=== PATIENT | male | born 1940 | race Caucasian/White ===

== ENCOUNTER → 2016-09-22 | Outpatient (CLI) | payer MEDICARE, OTHER ==
[~2016-09-22] MED LIST: ALLO300T74 PO; ASPI-725 PO; CEPH-583 PO; CHOL100055 PO; CHOL100092 PO; CLIN300C86 PO; FURO40TA70 PO; GABA-338 PO; HYDR-347 PO; LATA2.5D2 LEFT EYE; LEVO500T63 PO; LOSA100T7 PO; METO-68 PO; NITR0.4T39 SL; OMEG1CAP95 PO; OMEP40CA52 PO; OXYC1TAB11 PO; POLY17PO6 PO; POTA10TA93 PO; ROSU10TA13 PO; TAMS-1 PO; TEST60GE TD; [UNRECOGNIZED DRUG - CODE] OP
--- NOTE | 2016-09-22 19:35 | WOUNDCONF ---
DATE OF CONSULTATION September 22, 2016 CHIEF COMPLAINT Infectious Disease consultation was requested by Dr. Soriano for osteomyelitis of the left great toe. HISTORY OF PRESENT ILLNESS Mr. Lombardi is a 76-year-old man who states that about three months ago after he got out of the shower he had a fairly large chunk of skin that came off on the bottom of his left great toe. He states that he did not think that there was a "crater" underneath that and initially this was not painful. Eventually he did develop some increased pain there. He then went to see his primary care provider who gave him an antibiotic. He states this was about two and a half months ago. He cannot recall the name of this antibiotic. He did not think there was much improvement. In fact, he noticed increased drainage from this area and some of the drainage looked bloody and some was purulent. He returned to his primary care provider on September 11 and he was given Keflex on that day and was referred to the wound clinic. He was seen by Dr. Soriano on September 20. He underwent some debridement and a wound culture was obtained which showed few gram-positive cocci in pairs, few gram positive rods, a few gram-negative rods on the Gram stain. The culture is growing moderate growth of the gram- negative alejandra which has not yet been identified, moderate growth of Staph aureus and Diphtheroid bacillus. The sensitivities on the Staph aureus are not yet available. He had arterial Dopplers of the lower extremities done on September 21, which was yesterday. This showed occlusion of the left proximal superficial femoral artery and mild stenosis in the right popliteal with decreased flow in the calf arteries. He had an MRI of the left foot on September 20 which showed changes concerning for osteomyelitis of the distal phalanx on about the distal one-half of the proximal phalanx of the great toe on the left foot. He has been seen today by myself as well as Dr. Jurado. Dr. Jurado discussed taking him for a bone biopsy next , September 30, and we all discussed stopping his antibiotics to increase our culture yield. PAST MEDICAL HISTORY Hypertension. Hyperlipidemia. Gastroesophageal reflux disease. Peripheral neuropathy idiopathic. Erectile dysfunction. Gout. History of colon perforation. PAST SURGICAL HISTORY Coronary artery bypass graft surgery - April 2006. Tonsillectomy - 1943. Nasal septum repair - 1984. Perforated colon repair - 1991. SOCIAL HISTORY He is . He is retired . He lives in [place] with his . Occasional alcohol use. He reports occasional tobacco use in the form of a pipe. He states that he used to smoke cigarettes but quit 50 years ago. ALLERGIES Ambien. FAMILY HISTORY His father at age 43 of a myocardial infarction. Mother at age 73 of cancer. CURRENT MEDICATIONS Keflex 500 mg p.o. t.i.d. Allopurinol. Aspirin. Axiron. Crestor. Fish oil Flomax. Gabapentin. Lasix. Losartan. Metoprolol. Nitroglycerin. [place] p.r.n. foot pain. Omeprazole. Potassium supplement. Xalatan eye drops. REVIEW OF SYSTEMS He denies any recent fevers, chills or sweats. He denies any recent nausea, vomiting, diarrhea. Denies any chest pain, shortness of breath, abdominal pain. Denies any urinary complaints. He does have dry skin and has a lot of itching in his lower extremities. He has pain involving the left great toe which seems to be worse in the afternoons and when he has been on his foot for quite a while. He denies any significant problems with peripheral edema. The rest of the review of systems is negative other than that mentioned above. PHYSICAL EXAMINATION VITAL SIGNS: Temperature 96.5, blood pressure 155/82, pulse 52, respirations 12. Weight is 185 pounds. GENERAL: He appears comfortable and is in no acute distress. HEENT: Pupils equal, round, reactive to light. Extraocular movements intact. Oropharynx is clear. Dentition is good. NECK: Supple. HEART: Regular rate and rhythm. No murmurs noted. LUNGS: Clear to auscultation bilaterally anteriorly. ABDOMEN: Soft, nontender. He has normal bowel sounds. No guarding or rebound. EXTREMITIES: No joint effusions are noted. No significant peripheral edema is noted. He does have palpable pedal pulses involving the left lower extremity although they appear slightly diminished. His left great toe appears to be slightly edematous but this has a chronic appearance to it. He has an ulcer on the plantar aspect of the left great toe with some visible tendon in the middle of this wound. There is some granulation tissue in the wound and some slight bloody drainage but no purulence, no fluctuance and no significant cellulitis. NEUROLOGIC: Exam is grossly nonfocal. He is alert and oriented x 3. Speech is normal. PSYCHIATRIC: Mood and affect are appropriate. SKIN: No rashes although he does have several scabbed lesions on the left calf and left lower extremity consistent with excoriations. He also has a patch of raised dry skin near the lateral left ankle which has the appearance of eczema. LABORATORY Laboratory from September 20 shows a white count of 8.4, hemoglobin 13.4, platelets 269,000. Creatinine is 1.3. Liver function tests are normal. C-reactive protein 5.1. IMPRESSION 1. Chronic ulcer left great toe for three months with MRI showing changes concerning for osteomyelitis of the left great toe and proximal phalanx, superficial wound culture from September 20 with Staph aureus, a gram-negative alejandra and Diphtheroid bacillus. 2. Peripheral arterial disease with occlusion of the left proximal superficial femoral artery seen on Dopplers September 21, 2016. 3. Coronary artery disease status post coronary artery bypass graft surgery. 4. Hypertension. 5. Hyperlipidemia. 6. Idiopathic peripheral neuropathy. 7. Gastroesophageal reflux disease. 8. Gout. RECOMMENDATIONS This case was discussed with Dr. Jurado and Dr. Soriano. Dr. Jurado is planning to obtain a bone biopsy of the left great toe on September 30 and send it for cultures. Will have him discontinue his Keflex for now to try to increase the yield of these cultures. Also, the patient will be referred to Cardiology for possible intervention for his peripheral arterial disease. I discussed with the patient and his that I would recommend treating him with six weeks of IV antibiotics and I discussed PICC line placement with him. At this point, however, I need to wait for the bone culture to help guide antibiotic therapy. I will plan to see him back in followup on October 06 and at that time hopefully we will be able to initiate IV antibiotics. Thank you for allowing me to participate in the care of this patient. SUSHILA
--- NOTE | 2016-09-24 11:23 | WOUNDCONF ---
DATE OF CONSULTATION 09/22/2016 CHIEF COMPLAINT Left great toe ulcer. HISTORY OF PRESENT ILLNESS Mr. Lombardi is a kind 76-year-old gentleman who has been see in wound clinic for a left great toe ulceration which has been present since May of 2016. It started as a blister. It came off in the shower. He has been on a round of antibiotics and the ulcer improved but did not fully heal. He then started to develop increased redness in the toe and the foot which has since resolved on Keflex. It is thought that the ulcer is related to polyneuropathy. He has no history of known diabetes but does admit to decreased sensation in his feet. In the wound clinic earlier this week he was started on Hydrofera blue dressings with sharp debridement and using a postop shoe. SUSHILA
--- NOTE | 2016-09-24 11:45 | WOUNDCONF ---
DATE OF CONSULTATION 09/22/2016 REASON FOR CONSULT Left great toe ulceration. HISTORY OF PRESENT ILLNESS Mr. Lombardi is a kind 76-year-old gentleman who first noticed the ulceration to his left great toe two months ago. It has been treated as outpatient with antibiotics. Unfortunately, it is getting worse and he was seen at the wound clinic earlier this week. He was started on Hydrofera blue dressing and sharp debridement was performed. I was consulted for a possible bone biopsy. He states that ulcer started, again, about two months ago. He first noticed it in the shower. He thought it was a blister and the skin came off around it in the shower. 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 PAST MEDICAL HISTORY 1. Hereditary idiopathic neuropathy. 2. Seasonal allergies. PAST SURGICAL HISTORY Appendectomy. MEDICATIONS Are reviewed by me and available in the wound clinic chart. ALLERGIES Ambien. FAMILY HISTORY He is . He does not smoke. He does not drink alcohol. REVIEW OF SYSTEMS Positive for pain and glaucoma and allergies. Negative for chills, fever, chest pain, shortness of breath, vomiting, other skin lesions or bleeding disorders. EXAM GENERAL: He is alert and oriented, in no acute distress. He is well nourished and well developed. He is here with his . VITALS: Blood pressure is 155/82. Respirations 18. Pulse 52. Temperature is 96.5. EXTREMITIES: Exam of his left lower extremity shows he has a plantar ulceration over the great toe with tendon and/or deep fascia deep within the wound. The wound has recently been debrided and so does not currently have any necrotic tissue. There periwound area is clear. The wound measures approximately 0.9 x 0.9 x 0.3 cm. Sensation is intact to light touch throughout the foot but decreased. He has Dopplerable dorsalis pedis and posterior tibial pulses. ASSESSMENT Left great toe ulceration related to polyneuropathy. PLAN To fully treat his toe ulcer, Dr. Soriano and Dr. Timmons have requested a bone biopsy to help target the antibiotic treatment. I agree with this plan. I recommend we do this in the operating room. He is currently on antibiotics. Will have him stop his antibiotics today and then plan on the bone biopsy in one week's time. After that biopsy, then he can resume antibiotics per Dr. Timmons. I reviewed with him the risks and benefits and expected postoperative course with a bone biopsy. He agreed with this plan. We will schedule as an outpatient next . SUSHILA
== END ==
LOC: NWCC 09:55
PROVIDERS: ATTEND Internal Medicine
DX: L97.522 Non-pressure chronic ulcer of other part of left foot with fat layer exposed (principal); G60.9 Hereditary and idiopathic neuropathy, unspecified; I73.9 Peripheral vascular disease, unspecified; I25.10 Atherosclerotic heart disease of native coronary artery without angina pectoris; I10 Essential (primary) hypertension; E78.5 Hyperlipidemia, unspecified; K21.9 Gastro-esophageal reflux disease without esophagitis; M10.9 Gout, unspecified

== ENCOUNTER → 2016-10-06 | Outpatient (CLI) | payer MEDICARE, OTHER ==
[~2016-10-06] MED LIST changes: -CEPH-583 PO; -CHOL100092 PO; -CLIN300C86 PO; +SALINE FLUSH 10ml SYRINGE IVF ONE; -[UNRECOGNIZED DRUG - CODE] OP
--- NOTE | 2016-10-06 13:29 | WOUNDPNF ---
DATE October 06, 2016 CHIEF COMPLAINT Followup for osteomyelitis of the left great toe. HISTORY OF PRESENT ILLNESS Mr. Lombardi is a 76-year-old man who reports that about three months ago after he got out of the shower, he had a fairly large chunk of skin that just came off on the bottom of his left great toe. This went on to develop a wound. He was treated by his primary care physician with an antibiotic but did not have much improvement. On September 11 he was given Keflex and referred to the wound clinic. He had a superficial wound culture obtained September 20 that grew methicillin susceptible staph aureus, Stenotrophomonas maltophilia and bacillus species. He had an MRI of the left foot September 20 which showed changes concerning for osteomyelitis of the distal phalanx on the distal one half of the proximal phalanx of the great toe on the left foot. He also had arterial Dopplers which showed occlusion of the left proximal superficial femoral artery and mild stenosis in the right popliteal with decreased flow in the calf arteries. He was taken to the operating room by Dr. Jurado for a bone biopsy on September 30. This culture grew methicillin-susceptible staph aureus which was sensitive to clindamycin, doxycycline, erythromycin, levofloxacin, oxacillin, tetracycline, Bactrim, vancomycin and it also grew Enterococcus faecalis sensitive to ampicillin, doxycycline, linezolid and vancomycin. He comes back today for followup and to discuss IV antibiotics. PAST MEDICAL HISTORY, PAST SURGICAL HISTORY, SOCIAL HISTORY, ALLERGIES, FAMILY HISTORY Were reviewed. ALLERGIES Listed only to AMBIEN. REVIEW OF SYSTEMS He denies any fevers, chills or sweats. He denies any nausea, vomiting or diarrhea. He has a little bit of pain involving the left great toe. PHYSICAL EXAMINATION VITALS: Temperature is 97.1. Blood pressure 151/85. Pulse 51. Respirations 18. Weight is 185 pounds. GENERAL: In general he appears comfortable and in no acute distress. HEENT: Pupils equal, round, reactive to light. Extraocular movements intact. Oropharynx is clear. NECK: Supple. HEART: Regular rate and rhythm. No murmurs noted. LUNGS: Clear to auscultation bilaterally anteriorly. ABDOMEN: Soft and nontender. He has bowel sounds present. EXTREMITIES: No significant edema. No joint effusions are noted. His left great toe has a wound on the plantar aspect which appears mostly clean. There is some tendon exposed. No significant purulence and no significant surrounding cellulitis is noted. NEURO: Exam is grossly nonfocal. He is alert and oriented x3. Speech is normal. PSYCHIATRIC: His mood and affect are appropriate. LABORATORY Laboratory was reviewed from September 30. His creatinine is 1.2. IMPRESSION 1. Chronic ulcer left great toe with MRI showing changes concerning for osteomyelitis of the left great toe and proximal phalanx, status post bone biopsy September 30, 2016 with culture growing oxacillin susceptible staph aureus and Enterococcus faecalis sensitive to ampicillin. History of superficial wound culture with methicillin-susceptible staph aureus, Stenotrophomonas and Diphtheroid bacillus. 2. Peripheral arterial disease with occlusion of the left proximal superficial femoral artery seen on Dopplers September 21, 2016. 3. Coronary artery disease status post coronary artery bypass graft surgery. 4. Hypertension. 5. Hyperlipidemia. 6. Idiopathic peripheral neuropathy. 7. Gastroesophageal reflux disease. 8. Gout. RECOMMENDATIONS I discussed with the patient that I would recommend IV antibiotics for six weeks. Ideally I could give him a penicillin-related to antibiotics, however the frequency of doses required would be quite difficult to do as an outpatient. I recommend daptomycin 6 mg/kg IV daily for six weeks. The patient does have an upcoming trip to [place] October 19 through October 23 that he really needs to go to and so is asking how we can accommodate how we can accommodate his schedule with these antibiotics. I discussed with him that we could start him on IV antibiotics today and just have him take an oral antibiotic for those days when he is going to be gone or another option would be just to put him on oral antibiotics and wait until he returns to start his six-week course of IV antibiotics. He is wanting to go ahead and start the IV antibiotics today. We will try to get a PICC line in today and get his first dose of daptomycin today. He will then miss his daptomycin doses on October 19 through October 23 and return to the daptomycin on October 24. I gave him a prescription for Keflex 500 mg p.o. q.i.d. to be taken October 19 through October 23. I also recommended that he hold his Crestor while he is on the daptomycin. I discussed potential side effects of the daptomycin, namely the myositis. I will have him return for followup the first week in October. Thanks for allowing me to participate in the care of this patient. SUSHILA
== END ==
LOC: NWCC 09:03
PROVIDERS: ATTEND Internal Medicine Infectious Disease
DX: L97.522 Non-pressure chronic ulcer of other part of left foot with fat layer exposed (principal); G60.9 Hereditary and idiopathic neuropathy, unspecified; M86.672 Other chronic osteomyelitis, left ankle and foot; I73.9 Peripheral vascular disease, unspecified; I25.10 Atherosclerotic heart disease of native coronary artery without angina pectoris; I10 Essential (primary) hypertension; E78.5 Hyperlipidemia, unspecified; K21.9 Gastro-esophageal reflux disease without esophagitis; M10.9 Gout, unspecified
CPT/HCPCS: 11042

== ENCOUNTER → 2016-10-12 | Outpatient (CLI) | payer MEDICARE, OTHER ==
[~2016-10-12] MED LIST changes: -POLY17PO6 PO; -SALINE FLUSH 10ml SYRINGE IVF ONE
--- NOTE | 2016-10-12 14:00 | DI ---
Indication: ITS.REASON: I10 HTN; R09.89 Other specified symptoms and signs involving the PROCEDURE: US CAROTID DOPP COMPLETE: TECHNIQUE: Grayscale, color and duplex Doppler imaging was performed of the carotid systems bilaterally. Velocities in cm/sec - validated velocity measurements with angiographic measurements, velocity criteria are extrapolated from diameter data as defined by the Society of Radiologists in Ultrasound Consensus Conference Radiology 2003; 229;340-346. RIGHT: PSV ICA 243 EDV ICA 47 PSV CCA 112 EDV CCA 18 PSV ECA 336 ICA Diameter reduction 75-85% LEFT: PSV ICA 323 EDV ICA 74.3 PSV CCA 114 EDV CCA 14.7 PSV ECA 141 ICA Diameter reduction 80-95% The right vertebral artery is patent with cephalic flow. The left vertebral artery is patent with cephalic flow. Significant calcified plaque in the right common carotid and carotid bulb. Large amount of calcified and noncalcified plaque in the right proximal ICA. Large amount of calcified and noncalcified plaque in the left carotid bulb and proximal to mid ICA. Significant focal velocity elevation in the right proximal ICA and in the left mid to distal ICA. Elevated velocities in the right ECA also noted. IMPRESSION: 1. 75-85% stenosis of the right proximal ICA. 2. 80-95% stenosis of the left mid to distal ICA. .
--- NOTE | 2016-10-13 13:47 | ECHOF ---
ECHOCARDIOGRAM REPORT DATE OF PROCEDURE October 12, 2016 This is a two-dimensional echo with spectral Doppler, color-flow and M-mode. It was obtained in a patient with coronary artery disease and coronary artery bypass graft. Left atrium is dilated. Left ventricle end-diastolic dimension is normal. Left ventricle wall thickness is increased. LV systolic function is normal with ejection fraction of 65%. Right atrium is dilated. Right ventricle is normal. Aortic root dimension is normal. Mitral annulus is heavily calcified. Mitral valve leaflets are sclerotic with mild mitral regurgitation and no stenosis. Aortic valve shows fibrocalcific changes with no stenosis. Mild aortic insufficiency is present. Tricuspid valve shows mild tricuspid regurgitation with normal estimated pulmonary artery systolic pressure of 27. Pulmonary valve shows trace of pulmonary insufficiency. There is no pericardial effusion. IMPRESSION 1. Normal LV systolic function with ejection fraction of 65%. 2. Left ventricular hypertrophy. 3. Biatrial dilation. 4. Mitral annulus calcification with mild mitral regurgitation. 5. Aortic sclerosis with mild aortic insufficiency. 6. Mild tricuspid regurgitation with normal estimated pulmonary artery systolic pressure of 27. 7. Trace of pulmonary insufficiency. MTDD
== END ==
LOC: IMA 12:27
PROVIDERS: ATTEND Internal Medicine Cardiovascular Disease
DX: I65.23 Occlusion and stenosis of bilateral carotid arteries (principal); I08.3 Combined rheumatic disorders of mitral, aortic and tricuspid valves; I10 Essential (primary) hypertension; R09.89 Other specified symptoms and signs involving the circulatory and respiratory systems
CPT/HCPCS: 93306

== ENCOUNTER → 2016-10-28 | Outpatient (CLI) | payer MEDICARE, OTHER | LOC: NWCC 09:27 | PROVIDERS: ATTEND Internal Medicine | DX: L97.522 Non-pressure chronic ulcer of other part of left foot with fat layer exposed (principal); M86.071 Acute hematogenous osteomyelitis, right ankle and foot; I73.9 Peripheral vascular disease, unspecified | CPT/HCPCS: 11042; A6209 ==

== ENCOUNTER → 2016-11-17 | Outpatient (CLI) | payer MEDICARE, OTHER ==
[~2016-11-17] MED LIST changes: +SALINE FLUSH 10ml SYRINGE IVF ONE; +SILVER NITRATE APPLICATOR TOP ONE
--- NOTE | 2016-11-17 18:54 | WOUNDPNF ---
November 17, 2016 CHIEF COMPLAINT Followup for osteomyelitis of the left great toe. HISTORY OF PRESENT ILLNESS Mr. Lombardi is a 76-year-old man who developed a wound on the bottom of his left great toe. He has been treated with some oral antibiotics without much improvement. He had a superficial wound culture obtained September 20 that grew methicillin-susceptible Staph aureus, Stenotrophomonas maltophilia and bacillus species. He had an MRI of the foot September 20 which showed changes concerning for osteomyelitis of the distal phalanx on the distal one-half of the proximal phalanx of the great toe on the left foot. He also had arterial Dopplers which showed occlusion of the left proximal superficial femoral artery and mild stenosis in the right popliteal with decreased flow in the calf arteries. He was taken to the operating room by Dr. Jurado for a bone biopsy on September 30. This culture grew methicillin-resistant Staph aureus which was sensitive to clindamycin, doxycycline, erythromycin, levofloxacin, oxacillin, tetracycline, Bactrim, vancomycin and it also grew Enterococcus faecalis sensitive to ampicillin, doxycycline, linezolid and vancomycin. I saw him initially on October 06 and recommended IV antibiotics for six weeks. For convenience I started him on daptomycin 6 mg/kg IV daily for six weeks. He did discuss with me that he had a trip out of town on October 19 through October 23 and so I gave him Keflex to be taken during those days. He underwent a vascular surgery procedure on November [address] German Caceres. It sounds as though he had an endarterectomy with patch placement. He reports that yesterday in particular he had increase in swelling as well as some intense sharp shooting pains that lasted for about three hours and now those symptoms are improved. He also states he had redness on his leg yesterday which is now improved. His wound continues to improve. PAST MEDICAL HISTORY, PAST SURGICAL HISTORY, SOCIAL HISTORY, ALLERGIES, FAMILY HISTORY Reviewed. ALLERGIES Listed only to Ambien. REVIEW OF SYSTEMS He denies any fevers, chills or sweats. He denies any nausea, vomiting or diarrhea. He reports the increase in swelling, pain and redness, especially in the last 24-48 hours which is now improved. He does have an incision in the left groin which seems to be healing appropriately and he denies any drainage there. EXAM VITAL SIGNS: Temperature is 97, blood pressure is 160/81, pulse 70, respirations 18. GENERAL: He appears comfortable. He is in no acute distress. HEENT: Pupils equal, round, reactive to light. Extraocular movements are intact. Oropharynx is clear. NECK: Supple. HEART: Regular rate and rhythm. No murmurs noted. LUNGS: Clear to auscultation bilaterally anteriorly. ABDOMEN: Soft, nontender. He has bowel sounds present. EXTREMITIES: He has some edema noted especially in the left lower extremity, I would say 1-2+. down near the foot. The left great toe itself is swollen. The wound on the plantar aspect of the left great toe has improved and appears clean. I do not see any exposed tendon. There is no purulence, no surrounding cellulitis. The wound measures 0.7 x 0.6. NEUROLOGIC: Exam is grossly nonfocal. He is alert and oriented x3. Speech is normal. SKIN: No rashes. I also looked at his left groin incision which is intact with edmund in place. No surrounding redness or drainage noted. PSYCHIATRIC: His mood and affect are appropriate. LABORATORY His labs were reviewed. Most recent labs are from Tuesday, November 15. White count was 10.2, hemoglobin 9.7, platelets 374,000. Creatinine 1.1. C-reactive protein was 181 - the week prior it was 26. Sed rate was 114 and the week prior was 60. IMPRESSION 1. Chronic ulcer left great toe with MRI showing changes concerning for osteomyelitis of the left great toe and proximal phalanx, status post bone biopsy September 30, 2016 with culture growing oxacillin-susceptible Staph aureus and Enterococcus faecalis sensitive to ampicillin. 2. Peripheral arterial disease status post endarterectomy of the left proximal superficial femoral artery November 12, 2016. 3. Coronary artery disease status post coronary artery bypass graft surgery. 4. Hypertension. 5. Hyperlipidemia. 6. Idiopathic peripheral neuropathy. 7. Gastroesophageal reflux disease. 8. Gout. RECOMMENDATIONS I discussed with him that I think most likely the elevation in his C-reactive protein and sed rate are related to his surgery that he had last week. His wound continues to improve. However, he still has a significant amount of swelling noted involving the great toe on the left lower extremity. I think it might be prudent to continue his IV daptomycin for at least another week. I will recheck labs again on Tuesday and see him back in followup next week. Today would denise exactly six weeks since the beginning of his IV antibiotic therapy. SUSHILA
== END ==
LOC: NWCC 09:31
PROVIDERS: ATTEND Internal Medicine Infectious Disease
DX: L97.522 Non-pressure chronic ulcer of other part of left foot with fat layer exposed (principal); M86.172 Other acute osteomyelitis, left ankle and foot; I73.9 Peripheral vascular disease, unspecified; I10 Essential (primary) hypertension; E78.5 Hyperlipidemia, unspecified; G60.9 Hereditary and idiopathic neuropathy, unspecified; K21.9 Gastro-esophageal reflux disease without esophagitis; M10.9 Gout, unspecified; R60.1 Generalized edema
CPT/HCPCS: 11042; A6021; A6209

== ENCOUNTER → 2016-11-24 | Outpatient (CLI) | payer MEDICARE, OTHER ==
[~2016-11-24] MED LIST changes: -SALINE FLUSH 10ml SYRINGE IVF ONE; -SILVER NITRATE APPLICATOR TOP ONE
--- NOTE | 2016-11-24 15:39 | DI ---
Indication: ITS.REASON: M79.662 Pain in left lower leg PROCEDURE: US VENOUS DUPLEX, LOWER EXT LT: Encounter: Initial Comparison: None Technique: Color Doppler duplex and grayscale sonographic imaging of the left lower extremity was performed. Findings: There is no evidence for acute deep venous thrombosis in the left thigh. Specifically, serial graded compression was performed from the inguinal ligament to the popliteal bifurcation, on the left thigh, demonstrating appropriate compressibility of the deep venous system. In addition, color and pulsed Doppler demonstrate appropriate spontaneous flow, variation with respiration, and augmentation with calf compression. At the ankle, normal flow is identified in the posterior tibial veins; these vessels are also normal in caliber. There is an oval hypoechoic slightly complex collection in the upper thigh area soft tissues. This measures 4.1 x 3 cm in maximal size. There is no internal Doppler color flow appreciated. Impression: No evidence of acute DVT in the left lower limb. Probable soft tissue hematoma. .
== END ==
LOC: IMA 14:57
PROVIDERS: ATTEND Internal Medicine
DX: M79.662 Pain in left lower leg (principal)